=== PATIENT | female | born 1950 | race Caucasian/White ===

== ENCOUNTER 2018-05-12 02:35 | Outpatient (CLI) | payer MEDICARE, MEDICAID | END 2018-05-12 23:59 | disposition home or self-care (01) | LOC: DIABETIC 02:35 | PROVIDERS: ATTEND Specialist | DX: E11.65 Type 2 diabetes mellitus with hyperglycemia (principal); Z79.82 Long term (current) use of aspirin; Z79.4 Long term (current) use of insulin; Z79.899 Other long term (current) drug therapy | CPT/HCPCS: G0108 ==

== ENCOUNTER 2018-06-10 03:15 | Outpatient (CLI) | payer MEDICARE, MEDICAID | END 2018-06-10 23:59 | disposition home or self-care (01) | LOC: DIABETIC 03:15 | PROVIDERS: ATTEND Specialist | DX: E11.65 Type 2 diabetes mellitus with hyperglycemia (principal); Z79.82 Long term (current) use of aspirin; Z79.4 Long term (current) use of insulin; Z79.899 Other long term (current) drug therapy | CPT/HCPCS: G0108 ==